=== PATIENT | male | born 1940 | race Caucasian/White ===

== ENCOUNTER → 2019-07-16 09:12 | Outpatient (CLI) | payer MEDICARE | END | disposition home or self-care (01) | LOC: D.CT 09:12 | PROVIDERS: ATTEND Family Medicine | DX: I71.2 Thoracic aortic aneurysm, without rupture (principal) ==

== ENCOUNTER → 2020-01-06 07:51 | Outpatient (CLI) | payer MEDICARE | END | disposition home or self-care (01) | LOC: D.CT 07:51 | PROVIDERS: ATTEND Family Medicine | DX: I71.2 Thoracic aortic aneurysm, without rupture (principal) ==

== ENCOUNTER → 2021-01-08 10:15 | Outpatient (CLI) | payer MEDICARE | END | disposition home or self-care (01) | LOC: D.CT 10:15 | PROVIDERS: ATTEND Family Medicine | DX: I71.9 Aortic aneurysm of unspecified site, without rupture (principal) ==